=== PATIENT | female | born 1950 | race Caucasian/White ===

== ENCOUNTER 2017-02-09 12:16 | Outpatient (CLI) | payer BC ==
--- NOTE | 2017-02-09 12:33 | DIAGNOSTIC IMAGING REPORT ---
PROCEDURE: XR CHEST 2 VIEW INDICATION: WHEEZING/URI TECHNIQUE: Two views COMPARISON: 05/21/2014 FINDINGS: The cardiomediastinal contour is normal. No central venous congestion. The pulmonary arteries are prominent. The lungs hyperinflated but clear without focal consolidation, pleural effusion or pneumothorax. The osseous structures are intact. IMPRESSION: 1. No acute disease. 2. Findings of COPD/emphysema.
== END 2017-02-09 23:00 | disposition home or self-care (01) ==
LOC: XR SRH 12:16
DX: J44.9 Chronic obstructive pulmonary disease, unspecified (principal)

== ENCOUNTER 2017-05-24 09:46 | Outpatient (CLI) | payer BC ==
--- NOTE | 2017-05-24 10:16 | DIAGNOSTIC IMAGING REPORT ---
PROCEDURE: DEXA BONE DENSITY STUDY CLINICAL INDICATION: PREVENTIVE HEALTH CARE COMPARISON: DEXA study 07/14/2010 FINDINGS: LUMBAR SPINE: Bone mineral density 0.721 g/cm2, T score -3.0 osteoporosis which represents a 7% decrease from the previous study LEFT HIP: Bone mineral density 0.763 g/cm2, T score -1.5 osteopenia which represents a 3.8% decrease from the previous study LEFT FEMORAL NECK: Bone mineral density 0.610 g/cm2, T score -2.2 osteopenia which represents a 5.6% decrease from the previous study FRACTURE RISK CALCULATION ( when applicable): 10-year fracture risk of a major osteoporotic fracture and of a hip fracture not reported because some T-score at or below -2.5 (T score greater or equal to -1.0 to: NORMAL) (T score from -1.1 to -2.4: OSTEOPENIA) (T score ess than or equal to -2.5: OSTEOPOROSIS) IMPRESSION: 1. Osteoporosis lumbar spine. Osteopenia left hip and femoral neck with decreases from the previous study of 7%, 3.8%, and 5.6%.
== END 2017-05-24 23:00 | disposition home or self-care (01) ==
LOC: XR SRH 09:46
DX: M81.0 Age-related osteoporosis without current pathological fracture (principal); M85.80 Other specified disorders of bone density and structure, unspecified site